=== PATIENT | female | born 2000 | race Asian ===

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

== ENCOUNTER → 2020-05-14 | Outpatient (CLI) | payer BC | LOC: COL.RAD 09:32 | DX: H02.402 Unspecified ptosis of left eyelid (principal); G62.9 Polyneuropathy, unspecified | CPT/HCPCS: A9585 ==

== ENCOUNTER 2022-03-19 09:57 | Outpatient (CLI) | payer BC ==
[~2022-03-19] VITALS: Ht 160 cm; Wt 57.5 kg
[2022-03-19] VITALS (11 sets, daily range): BP systolic 101–120; BP diastolic 40–83; PULSE 48–75; TEMP 98
[~2022-03-19 09:57] MED LIST: DESYREL 50MG50 MG PO; LEXAPRO 10MG10 MG PO; MAGNESIUM500 MG PO; PRENATAL TABLET PO; SYNTHROID 0.0.025 MG PO; VITAMIN D 50,1.25 MG PO; VITAMIN D31000 I1 PO
[2022-03-19 10:46] LABS: ALBUMIN 3.9 gm/dL (3.5-5.0); BILIRUBIN,TOTAL 1.3 mg/dL (0.2-1.2); CALCIUM 8.9 mg/dL (8.4-10.2); CREATININE, serum 0.73 mg/dL (0.57-1.11); POTASSIUM 4.3 mmol/L (3.5-4.5); TOTAL PROTEIN 7.9 gm/dL (6.2-8.1)
[2022-03-19 10:49] LABS: BASO % 0.4 % (0.0-2.0); GRAN # 2.8 K/mm3 (1.4-6.5); GRAN % 54.6 % (42.2-75.2); HEMATOCRIT 37.4 % (37.0-47.0); HEMOGLOBIN 13.3 g/dl (12.5-16.0); LYMPH # 1.9 K/mm3 (1.2-3.4); LYMPH % 38.3 % (20.0-51.0); MEAN CELL VOLUME 90 fl (80.0-100.0); MEAN CORPUSCULAR HEMOGLOBIN 32 pg (27-31); MEAN CORPUSCULAR HGB CONC 36 g/dl (33.0-37.0); MEAN PLATELET VOLUME 9.4 fl (7.4-10.4); MONO # 0.3 K/mm3 (0.1-0.6); MONO % 6.5 % (1.7-9.3); PLATELET COUNT 311 K/mm3 (130-400); RED BLOOD COUNT 4.14 M/mm3 (4.10-5.30)
== END 2022-03-19 16:22 | disposition home or self-care (01) ==
LOC: EUO 09:57
PROVIDERS: Psychiatry & Neurology Neurology
DX: E06.3 Autoimmune thyroiditis (principal); G62.9 Polyneuropathy, unspecified; G61.81 Chronic inflammatory demyelinating polyneuritis
CPT/HCPCS: J1569; J7050

== ENCOUNTER 2022-05-21 08:56 | Outpatient (CLI) | payer BC ==
[~2022-05-21] VITALS: Ht 160 cm; Wt 56.7 kg
[2022-05-21] VITALS (9 sets, daily range): BP systolic 95–110; BP diastolic 60–77; PULSE 62–74; TEMP 98.3
[~2022-05-21 08:56] MED LIST changes: -MAGNESIUM500 MG PO; +NATURAL MAGNES200 MG PO
[2022-05-21 09:29] LABS: BASO % 0.2 % (0.0-2.0); GRAN # 8.2 K/mm3 (1.4-6.5); GRAN % 78.2 % (42.2-75.2); HEMATOCRIT 39.9 % (37.0-47.0); LYMPH # 1.6 K/mm3 (1.2-3.4); LYMPH % 15.7 % (20.0-51.0); MEAN CELL VOLUME 91 fl (80.0-100.0); MEAN CORPUSCULAR HEMOGLOBIN 32 pg (27-31); MEAN CORPUSCULAR HGB CONC 35 g/dl (33.0-37.0); MEAN PLATELET VOLUME 9.5 fl (7.4-10.4); MONO # 0.6 K/mm3 (0.1-0.6); MONO % 5.6 % (1.7-9.3); PLATELET COUNT 288 K/mm3 (130-400); RED BLOOD COUNT 4.39 M/mm3 (4.10-5.30); REDCELL DISTRIBUTION WIDTH-CV 11.6 % (11.5-14.5)
[2022-05-21 09:44] LABS: ALBUMIN 3.9 gm/dL (3.5-5.0); BILIRUBIN,TOTAL 0.7 mg/dL (0.2-1.2); CALCIUM 8.7 mg/dL (8.4-10.2); CREATININE, serum 0.74 mg/dL (0.57-1.11); POTASSIUM 3.9 mmol/L (3.5-4.5); TOTAL PROTEIN 7.8 gm/dL (6.2-8.1)
== END 2022-05-21 13:45 | disposition home or self-care (01) ==
LOC: EUO 08:56
PROVIDERS: Psychiatry & Neurology Neurology
DX: E06.3 Autoimmune thyroiditis (principal); G62.9 Polyneuropathy, unspecified; G61.81 Chronic inflammatory demyelinating polyneuritis
CPT/HCPCS: J1569; J7050

== ENCOUNTER 2022-06-11 08:58 | Outpatient (CLI) | payer BC ==
[2022-06-11] VITALS (9 sets, daily range): BP systolic 97–110; BP diastolic 43–57; PULSE 53–83; TEMP 97.9–98
[~2022-06-11] VITALS: Ht 160 cm; Wt 58.4 kg
[2022-06-11 09:30] LABS: BASO % 0.4 % (0.0-2.0); GRAN # 3.1 K/mm3 (1.4-6.5); GRAN % 59.2 % (42.2-75.2); HEMATOCRIT 37.8 % (37.0-47.0); HEMOGLOBIN 13.2 g/dl (12.5-16.0); LYMPH # 1.7 K/mm3 (1.2-3.4); LYMPH % 32.6 % (20.0-51.0); MEAN CELL VOLUME 92 fl (80.0-100.0); MEAN CORPUSCULAR HEMOGLOBIN 32 pg (27-31); MEAN CORPUSCULAR HGB CONC 35 g/dl (33.0-37.0); MEAN PLATELET VOLUME 9.3 fl (7.4-10.4); MONO # 0.4 K/mm3 (0.1-0.6); MONO % 7.6 % (1.7-9.3); PLATELET COUNT 306 K/mm3 (130-400); REDCELL DISTRIBUTION WIDTH-CV 12.4 % (11.5-14.5)
[2022-06-11 09:53] LABS: ALBUMIN 3.6 gm/dL (3.5-5.0); BILIRUBIN,TOTAL 0.8 mg/dL (0.2-1.2); CALCIUM 8.4 mg/dL (8.4-10.2); CREATININE, serum 0.75 mg/dL (0.57-1.11); POTASSIUM 4.2 mmol/L (3.5-4.5); TOTAL PROTEIN 7.3 gm/dL (6.2-8.1)
== END 2022-06-11 14:04 | disposition home or self-care (01) ==
LOC: EUO 08:58
PROVIDERS: Psychiatry & Neurology Neurology
DX: E06.3 Autoimmune thyroiditis (principal); G62.9 Polyneuropathy, unspecified; G61.81 Chronic inflammatory demyelinating polyneuritis
CPT/HCPCS: J1569; J7050

== ENCOUNTER 2022-07-02 08:57 | Outpatient (CLI) | payer BC ==
[~2022-07-02] VITALS: Ht 160 cm; Wt 57.7 kg
[2022-07-02 09:23] LABS: BASO % 0.5 % (0.0-2.0); GRAN % 63.1 % (42.2-75.2); HEMATOCRIT 38.5 % (37.0-47.0); HEMOGLOBIN 13.6 g/dl (12.5-16.0); LYMPH # 1.9 K/mm3 (1.2-3.4); LYMPH % 30.3 % (20.0-51.0); MEAN CELL VOLUME 92 fl (80.0-100.0); MEAN CORPUSCULAR HEMOGLOBIN 33 pg (27-31); MEAN CORPUSCULAR HGB CONC 35 g/dl (33.0-37.0); MEAN PLATELET VOLUME 9.4 fl (7.4-10.4); MONO # 0.4 K/mm3 (0.1-0.6); MONO % 5.8 % (1.7-9.3); PLATELET COUNT 301 K/mm3 (130-400); RED BLOOD COUNT 4.18 M/mm3 (4.10-5.30)
[2022-07-02 09:27] VITALS: BP 99/52; PULSE 58; TEMP 98
[2022-07-02 09:43] LABS: ALBUMIN 3.9 gm/dL (3.5-5.0); BILIRUBIN,TOTAL 0.7 mg/dL (0.2-1.2); CALCIUM 8.7 mg/dL (8.4-10.2); CREATININE, serum 0.76 mg/dL (0.57-1.11); TOTAL PROTEIN 7.9 gm/dL (6.2-8.1)
[2022-07-02 10:25] VITALS: BP 93/48; PULSE 63
[2022-07-02 11:00] VITALS: BP 96/45; PULSE 67
[2022-07-02 12:00] VITALS: BP 101/48; PULSE 62
[2022-07-02 13:00] VITALS: BP 102/54; PULSE 56
--- NOTE | 2022-07-02 15:24 | NUR ---
Pt discharged at approx 1445. Pt tolerated IVIG infusion well and her VS remained within her normal limits throughout infusion. Pt's baseline BP today is hypotensive and this was discussed with pt during her infusion. Pt verbalized that she did not feel symptomatic of hypotension and denied faintness, lightheadedness, and nausea. Pt ambulated independently to and from main lobby and tolerated po food and fluid during infusion. Pt was given card with her next appointment and was free from concnerns and complaints at time of discharge.
== END 2022-07-02 14:45 | disposition home or self-care (01) ==
LOC: EUO 08:57
PROVIDERS: Psychiatry & Neurology Neurology
DX: E06.3 Autoimmune thyroiditis (principal); G62.9 Polyneuropathy, unspecified; G61.81 Chronic inflammatory demyelinating polyneuritis
CPT/HCPCS: J1569; J7050

== ENCOUNTER 2022-07-23 09:06 | Outpatient (CLI) | payer BC ==
[2022-07-23] VITALS (9 sets, daily range): BP systolic 92–107; BP diastolic 58–67; PULSE 62–81; TEMP 98.5–99
[~2022-07-23] VITALS: Ht 160 cm; Wt 58.6 kg
[2022-07-23] MEDS ORDERED: GAMMAGARD IV (09:22)
[2022-07-23 09:29] LABS: BASO % 0.5 % (0.0-2.0); GRAN # 3.3 K/mm3 (1.4-6.5); GRAN % 56.8 % (42.2-75.2); HEMATOCRIT 37.4 % (37.0-47.0); HEMOGLOBIN 12.8 g/dl (12.5-16.0); LYMPH # 2.1 K/mm3 (1.2-3.4); LYMPH % 36.1 % (20.0-51.0); MEAN CELL VOLUME 93 fl (80.0-100.0); MEAN CORPUSCULAR HEMOGLOBIN 32 pg (27-31); MEAN CORPUSCULAR HGB CONC 34 g/dl (33.0-37.0); MEAN PLATELET VOLUME 9.4 fl (7.4-10.4); MONO # 0.4 K/mm3 (0.1-0.6); MONO % 6.3 % (1.7-9.3); PLATELET COUNT 322 K/mm3 (130-400); RED BLOOD COUNT 4.03 M/mm3 (4.10-5.30); REDCELL DISTRIBUTION WIDTH-CV 12.8 % (11.5-14.5)
[2022-07-23 09:44] LABS: ALBUMIN 3.8 gm/dL (3.5-5.0); BILIRUBIN,TOTAL 0.8 mg/dL (0.2-1.2); CALCIUM 8.7 mg/dL (8.4-10.2); CREATININE, serum 0.74 mg/dL (0.57-1.11); POTASSIUM 3.8 mmol/L (3.5-4.5); TOTAL PROTEIN 7.5 gm/dL (6.2-8.1)
== END 2022-07-23 13:45 | disposition home or self-care (01) ==
LOC: EUO 09:06
PROVIDERS: Psychiatry & Neurology Neurology
DX: E06.3 Autoimmune thyroiditis (principal); G62.9 Polyneuropathy, unspecified; G61.81 Chronic inflammatory demyelinating polyneuritis
CPT/HCPCS: J1569; J7050

== ENCOUNTER 2022-11-05 09:06 | Outpatient (CLI) | payer BC ==
[~2022-11-05] VITALS: Ht 160 cm; Wt 58.9 kg
[2022-11-05] VITALS (7 sets, daily range): BP systolic 100–110; BP diastolic 50–57; PULSE 51–59; TEMP 97.8
[~2022-11-05 09:06] MED LIST changes: +GAMMAGARD IV
[2022-11-05 09:35] LABS: BASO % 0.3 % (0.0-2.0); GRAN # 2.2 K/mm3 (1.4-6.5); GRAN % 55.4 % (42.2-75.2); HEMATOCRIT 39.9 % (37.0-47.0); HEMOGLOBIN 13.7 g/dl (12.5-16.0); LYMPH # 1.4 K/mm3 (1.2-3.4); MEAN CELL VOLUME 92 fl (80.0-100.0); MEAN CORPUSCULAR HEMOGLOBIN 32 pg (27-31); MEAN CORPUSCULAR HGB CONC 34 g/dl (33.0-37.0); MEAN PLATELET VOLUME 9.5 fl (7.4-10.4); MONO # 0.3 K/mm3 (0.1-0.6); PLATELET COUNT 290 K/mm3 (130-400); RED BLOOD COUNT 4.35 M/mm3 (4.10-5.30); REDCELL DISTRIBUTION WIDTH-CV 12.5 % (11.5-14.5)
[2022-11-05 09:51] LABS: ALBUMIN 4.2 gm/dL (3.5-5.0); BILIRUBIN,TOTAL 1.9 mg/dL (0.2-1.2); CALCIUM 8.9 mg/dL (8.4-10.2); CREATININE, serum 0.75 mg/dL (0.57-1.11); POTASSIUM 3.9 mmol/L (3.5-4.5); TOTAL PROTEIN 8.5 gm/dL (6.2-8.1)
== END 2022-11-05 13:54 | disposition home or self-care (01) ==
LOC: EUO 09:06
PROVIDERS: Psychiatry & Neurology Neurology
DX: E06.3 Autoimmune thyroiditis (principal); G62.9 Polyneuropathy, unspecified
CPT/HCPCS: J1569; J7050

== ENCOUNTER → 2022-11-23 | Outpatient (CLI) | payer BC | LOC: COL.RAD 10:30 | DX: R74.01 Elevation of levels of liver transaminase levels (principal) ==

== ENCOUNTER 2022-12-03 07:33 | Outpatient (CLI) | payer BC ==
[2022-12-03] VITALS (8 sets, daily range): BP systolic 94–111; BP diastolic 54–69; PULSE 55–73; TEMP 98–98.4
[~2022-12-03] VITALS: Ht 160 cm; Wt 59.6 kg
[2022-12-03 08:10] LABS: BASO % 0.5 % (0.0-2.0); GRAN % 61.6 % (42.2-75.2); HEMATOCRIT 38.2 % (37.0-47.0); HEMOGLOBIN 13.6 g/dl (12.5-16.0); LYMPH # 2.1 K/mm3 (1.2-3.4); MEAN CELL VOLUME 93 fl (80.0-100.0); MEAN CORPUSCULAR HEMOGLOBIN 33 pg (27-31); MEAN CORPUSCULAR HGB CONC 36 g/dl (33.0-37.0); MEAN PLATELET VOLUME 9.7 fl (7.4-10.4); MONO # 0.4 K/mm3 (0.1-0.6); MONO % 5.7 % (1.7-9.3); PLATELET COUNT 275 K/mm3 (130-400); RED BLOOD COUNT 4.11 M/mm3 (4.10-5.30); REDCELL DISTRIBUTION WIDTH-CV 13.1 % (11.5-14.5)
[2022-12-03 08:18] LABS: ALBUMIN 3.8 gm/dL (3.5-5.0); BILIRUBIN,TOTAL 1.2 mg/dL (0.2-1.2); CALCIUM 8.8 mg/dL (8.4-10.2); CREATININE, serum 0.73 mg/dL (0.57-1.11); POTASSIUM 3.9 mmol/L (3.5-4.5); TOTAL PROTEIN 8.1 gm/dL (6.2-8.1)
== END 2022-12-03 12:00 | disposition home or self-care (01) ==
LOC: EUO 07:33
PROVIDERS: Psychiatry & Neurology Neurology
DX: G61.81 Chronic inflammatory demyelinating polyneuritis (principal); E06.3 Autoimmune thyroiditis; G62.9 Polyneuropathy, unspecified
CPT/HCPCS: J1569; J7050

== ENCOUNTER 2022-12-17 08:47 | Outpatient (CLI) | payer BC ==
[2022-12-17] VITALS (8 sets, daily range): BP systolic 105–146; BP diastolic 65–79; PULSE 55–74; TEMP 97.8–98.5
[~2022-12-17] VITALS: Ht 160 cm; Wt 59.1 kg
[2022-12-17 09:14] LABS: BASO % 0.7 % (0.0-2.0); GRAN # 2.4 K/mm3 (1.4-6.5); GRAN % 53.2 % (42.2-75.2); HEMATOCRIT 39.3 % (37.0-47.0); LYMPH # 1.7 K/mm3 (1.2-3.4); LYMPH % 38.3 % (20.0-51.0); MEAN CELL VOLUME 92 fl (80.0-100.0); MEAN CORPUSCULAR HEMOGLOBIN 33 pg (27-31); MEAN CORPUSCULAR HGB CONC 36 g/dl (33.0-37.0); MEAN PLATELET VOLUME 9.4 fl (7.4-10.4); MONO # 0.3 K/mm3 (0.1-0.6); MONO % 7.6 % (1.7-9.3); PLATELET COUNT 277 K/mm3 (130-400); RED BLOOD COUNT 4.27 M/mm3 (4.10-5.30); REDCELL DISTRIBUTION WIDTH-CV 12.3 % (11.5-14.5)
[2022-12-17 09:34] LABS: ALBUMIN 3.9 gm/dL (3.5-5.0); BILIRUBIN,TOTAL 0.7 mg/dL (0.2-1.2); CALCIUM 8.8 mg/dL (8.4-10.2); CREATININE, serum 0.74 mg/dL (0.57-1.11); POTASSIUM 4.2 mmol/L (3.5-4.5); TOTAL PROTEIN 8.5 gm/dL (6.2-8.1)
--- NOTE | 2022-12-17 13:30 | NUR ---
Pt tolerated infusion without issue. IV DC'd, she exits dept with steady gait. Free of complaints at time of discharge.
== END 2022-12-17 13:30 | disposition home or self-care (01) ==
LOC: EUO 08:47
PROVIDERS: Psychiatry & Neurology Neurology
DX: G61.81 Chronic inflammatory demyelinating polyneuritis (principal)
CPT/HCPCS: J1569; J7050

== ENCOUNTER 2023-03-04 09:02 | Outpatient (CLI) | payer BC ==
[~2023-03-04] VITALS: Ht 160 cm; Wt 61.3 kg
[2023-03-04 09:32] LABS: BASO % 0.3 % (0.0-2.0); GRAN # 4.6 K/mm3 (1.4-6.5); GRAN % 66.9 % (42.2-75.2); HEMOGLOBIN 13.6 g/dl (12.5-16.0); LYMPH # 1.8 K/mm3 (1.2-3.4); LYMPH % 25.8 % (20.0-51.0); MEAN CELL VOLUME 92 fl (80.0-100.0); MEAN CORPUSCULAR HEMOGLOBIN 33 pg (27-31); MEAN CORPUSCULAR HGB CONC 36 g/dl (33.0-37.0); MEAN PLATELET VOLUME 9.3 fl (7.4-10.4); MONO # 0.5 K/mm3 (0.1-0.6); MONO % 6.9 % (1.7-9.3); PLATELET COUNT 291 K/mm3 (130-400); RED BLOOD COUNT 4.13 M/mm3 (4.10-5.30); REDCELL DISTRIBUTION WIDTH-CV 12.2 % (11.5-14.5)
[2023-03-04 09:41] VITALS: BP 107/50; PULSE 61; TEMP 98
[2023-03-04 09:54] LABS: ALBUMIN 3.7 gm/dL (3.5-5.0); BILIRUBIN,TOTAL 0.5 mg/dL (0.2-1.2); CALCIUM 8.8 mg/dL (8.4-10.2); CREATININE, serum 0.74 mg/dL (0.57-1.11); TOTAL PROTEIN 8.2 gm/dL (6.2-8.1)
[2023-03-04 10:45] VITALS: BP 110/60; PULSE 63
[2023-03-04 11:15] VITALS: BP 101/60; PULSE 57
[2023-03-04 11:45] VITALS: BP 106/49; PULSE 63
[2023-03-04 12:15] VITALS: BP 107/59; PULSE 72
== END 2023-03-04 13:39 | disposition home or self-care (01) ==
LOC: EUO 09:02
PROVIDERS: Psychiatry & Neurology Neurology
DX: G61.81 Chronic inflammatory demyelinating polyneuritis (principal)
CPT/HCPCS: J1569; J7050

== ENCOUNTER 2023-03-18 10:07 | Outpatient (CLI) | payer BC ==
[2023-03-18] VITALS (8 sets, daily range): BP systolic 101–120; BP diastolic 41–67; PULSE 61–86; TEMP 98.4
[~2023-03-18] VITALS: Ht 160 cm; Wt 59.9 kg
[2023-03-18] MEDS ORDERED: NS 250 ML IV SCH (10:30)
[2023-03-18] MEDS ORDERED: Immune Globulin (Gammagard) 30 G/300 ML IV SOLN IV SCH (10:30)
[2023-03-18] MEDS ORDERED: Acetaminophen 325 MG TAB PO ONE (10:30)
[2023-03-18] MEDS ORDERED: diphenhydrAMINE 50 MG CAP PO ONE (10:30)
[2023-03-18 10:44] LABS: BASO % 0.6 % (0.0-2.0); GRAN # 3.1 K/mm3 (1.4-6.5); HEMATOCRIT 38.9 % (37.0-47.0); HEMOGLOBIN 14.1 g/dl (12.5-16.0); LYMPH # 1.4 K/mm3 (1.2-3.4); MEAN CELL VOLUME 91 fl (80.0-100.0); MEAN CORPUSCULAR HEMOGLOBIN 33 pg (27-31); MEAN CORPUSCULAR HGB CONC 36 g/dl (33.0-37.0); MEAN PLATELET VOLUME 9.4 fl (7.4-10.4); MONO # 0.4 K/mm3 (0.1-0.6); MONO % 7.2 % (1.7-9.3); PLATELET COUNT 313 K/mm3 (130-400); RED BLOOD COUNT 4.28 M/mm3 (4.10-5.30); REDCELL DISTRIBUTION WIDTH-CV 12.3 % (11.5-14.5)
[2023-03-18 11:01] LABS: ALBUMIN 3.9 gm/dL (3.5-5.0); BILIRUBIN,TOTAL 1.2 mg/dL (0.2-1.2); CALCIUM 9.2 mg/dL (8.4-10.2); CREATININE, serum 0.71 mg/dL (0.57-1.11); POTASSIUM 4.2 mmol/L (3.5-4.5); TOTAL PROTEIN 8.8 gm/dL (6.2-8.1)
--- NOTE | 2023-03-18 14:45 | NUR ---
Pt tolerated IGG without issue. IV DC'd, site wrapped with coban. She exits dept with steady gait.
== END 2023-03-18 14:45 | disposition home or self-care (01) ==
LOC: EUO 10:07
PROVIDERS: Psychiatry & Neurology Neurology
DX: E06.3 Autoimmune thyroiditis (principal); G62.9 Polyneuropathy, unspecified; E04.9 Nontoxic goiter, unspecified; G61.81 Chronic inflammatory demyelinating polyneuritis
CPT/HCPCS: J1569; J7050

== ENCOUNTER 2023-04-01 09:01 | Outpatient (CLI) | payer BC ==
[2023-04-01] VITALS (7 sets, daily range): BP systolic 116–137; BP diastolic 70–83; PULSE 55–83; TEMP 98.2
[~2023-04-01] VITALS: Ht 160 cm; Wt 51.0 kg
[2023-04-01] MEDS ORDERED: diphenhydrAMINE 50 MG CAP PO ONE (09:15)
[2023-04-01] MEDS ORDERED: NS 250 ML IV SCH (09:15)
[2023-04-01] MEDS ORDERED: Immune Globulin (Gammagard) 30 G/300 ML IV SOLN IV SCH (09:15)
[2023-04-01 09:22] LABS: BASO % 0.4 % (0.0-2.0); EOS % 0.2 % (0.0-4.0); GRAN # 2.5 K/mm3 (1.4-6.5); GRAN % 53.3 % (42.2-75.2); HEMATOCRIT 39.7 % (37.0-47.0); HEMOGLOBIN 14.1 g/dl (12.5-16.0); LYMPH # 1.8 K/mm3 (1.2-3.4); MEAN CELL VOLUME 92 fl (80.0-100.0); MEAN CORPUSCULAR HEMOGLOBIN 33 pg (27-31); MEAN CORPUSCULAR HGB CONC 36 g/dl (33.0-37.0); MEAN PLATELET VOLUME 9.5 fl (7.4-10.4); MONO # 0.4 K/mm3 (0.1-0.6); MONO % 7.9 % (1.7-9.3); PLATELET COUNT 304 K/mm3 (130-400); RED BLOOD COUNT 4.34 M/mm3 (4.10-5.30); REDCELL DISTRIBUTION WIDTH-CV 12.4 % (11.5-14.5)
[2023-04-01] MEDS ORDERED: Acetaminophen 325 MG TAB PO ONE (09:30)
[2023-04-01 09:42] LABS: ALBUMIN 3.8 gm/dL (3.5-5.0); BILIRUBIN,TOTAL 1.2 mg/dL (0.2-1.2); CALCIUM 9.1 mg/dL (8.4-10.2); CREATININE, serum 0.82 mg/dL (0.57-1.11); POTASSIUM 4.2 mmol/L (3.5-4.5); TOTAL PROTEIN 8.5 gm/dL (6.2-8.1)
== END 2023-04-01 13:50 | disposition home or self-care (01) ==
LOC: EUO 09:01
PROVIDERS: Psychiatry & Neurology Neurology
DX: G61.81 Chronic inflammatory demyelinating polyneuritis (principal)
CPT/HCPCS: J1569; J7050

== ENCOUNTER 2023-04-15 07:31 | Outpatient (CLI) | payer BC ==
[~2023-04-15] VITALS: Ht 160 cm; Wt 60.9 kg
[2023-04-15] VITALS (8 sets, daily range): BP systolic 91–132; BP diastolic 45–67; PULSE 53–75; TEMP 97.8–98.3
[2023-04-15] MEDS ORDERED: Acetaminophen 325 MG TAB PO ONE (08:00)
[2023-04-15] MEDS ORDERED: diphenhydrAMINE 50 MG CAP PO ONE (08:00)
[2023-04-15] MEDS ORDERED: Immune Globulin (Gammagard) 30 G/300 ML IV SOLN IV SCH (08:00)
[2023-04-15] MEDS ORDERED: NS 250 ML IV SCH (08:00)
[2023-04-15 08:06] LABS: BASO % 0.4 % (0.0-2.0); EOS % 0.1 % (0.0-4.0); GRAN # 4.2 K/mm3 (1.4-6.5); GRAN % 62.3 % (42.2-75.2); HEMATOCRIT 38.2 % (37.0-47.0); HEMOGLOBIN 13.3 g/dl (12.5-16.0); LYMPH % 29.7 % (20.0-51.0); MEAN CELL VOLUME 93 fl (80.0-100.0); MEAN CORPUSCULAR HEMOGLOBIN 32 pg (27-31); MEAN CORPUSCULAR HGB CONC 35 g/dl (33.0-37.0); MEAN PLATELET VOLUME 9.4 fl (7.4-10.4); MONO # 0.5 K/mm3 (0.1-0.6); MONO % 7.2 % (1.7-9.3); PLATELET COUNT 267 K/mm3 (130-400); RED BLOOD COUNT 4.12 M/mm3 (4.10-5.30); REDCELL DISTRIBUTION WIDTH-CV 12.7 % (11.5-14.5)
[2023-04-15 08:23] LABS: ALBUMIN 3.5 gm/dL (3.5-5.0); BILIRUBIN,TOTAL 0.6 mg/dL (0.2-1.2); CALCIUM 8.9 mg/dL (8.4-10.2); CREATININE, serum 0.73 mg/dL (0.57-1.11); POTASSIUM 3.9 mmol/L (3.5-4.5); TOTAL PROTEIN 7.8 gm/dL (6.2-8.1)
== END 2023-04-15 12:05 ==
LOC: EUO 07:31
PROVIDERS: Psychiatry & Neurology Neurology
DX: G61.81 Chronic inflammatory demyelinating polyneuritis (principal); E06.9 Thyroiditis, unspecified; E04.9 Nontoxic goiter, unspecified
CPT/HCPCS: J1569; J7050

== ENCOUNTER 2023-05-13 08:59 | Outpatient (CLI) | payer BC ==
[~2023-05-13] VITALS: Ht 160 cm; Wt 61.0 kg
[2023-05-13] VITALS (9 sets, daily range): BP systolic 105–141; BP diastolic 45–60; PULSE 65–103; TEMP 97.8
[2023-05-13] MEDS ORDERED: Acetaminophen 325 MG TAB PO ONE (09:15)
[2023-05-13] MEDS ORDERED: Immune Globulin (Gammagard) 30 G/300 ML IV SOLN IV SCH (09:15)
[2023-05-13] MEDS ORDERED: diphenhydrAMINE 50 MG CAP PO ONE (09:15)
[2023-05-13] MEDS ORDERED: NS 250 ML IV SCH (09:15)
[2023-05-13 09:40] LABS: BASO % 0.5 % (0.0-2.0); GRAN # 3.4 K/mm3 (1.4-6.5); GRAN % 62.2 % (42.2-75.2); HEMATOCRIT 40.1 % (37.0-47.0); HEMOGLOBIN 14.2 g/dl (12.5-16.0); LYMPH # 1.7 K/mm3 (1.2-3.4); LYMPH % 30.2 % (20.0-51.0); MEAN CELL VOLUME 93 fl (80.0-100.0); MEAN CORPUSCULAR HEMOGLOBIN 33 pg (27-31); MEAN CORPUSCULAR HGB CONC 35 g/dl (33.0-37.0); MEAN PLATELET VOLUME 9.5 fl (7.4-10.4); MONO # 0.4 K/mm3 (0.1-0.6); MONO % 6.7 % (1.7-9.3); PLATELET COUNT 317 K/mm3 (130-400); RED BLOOD COUNT 4.33 M/mm3 (4.10-5.30); REDCELL DISTRIBUTION WIDTH-CV 12.4 % (11.5-14.5)
[2023-05-13 09:51] LABS: ALBUMIN 3.9 gm/dL (3.5-5.0); CALCIUM 9.2 mg/dL (8.4-10.2); CREATININE, serum 0.8 mg/dL (0.57-1.11); POTASSIUM 3.9 mmol/L (3.5-4.5); TOTAL PROTEIN 8.5 gm/dL (6.2-8.1)
[2023-05-13 10:00] LABS: BILIRUBIN,TOTAL 0.9 mg/dL (0.2-1.2)
--- NOTE | 2023-05-13 13:40 | NUR ---
PT TOLERATED INFUSION WELL. VS REMAINED WITHIN NORMAL LIMITS. PT FREE FROM ACUTE CONCERNS AND COMPLAINTS UPON DISCHARGE. PT AMBULATED INDEPENDENTLY TO [facility] UPON DISCHARGE. IV DISCONTINUED.
== END 2023-05-13 13:41 | disposition home or self-care (01) ==
LOC: EUO 08:59
PROVIDERS: Psychiatry & Neurology Neurology
DX: E06.3 Autoimmune thyroiditis (principal); G62.9 Polyneuropathy, unspecified; G61.81 Chronic inflammatory demyelinating polyneuritis; E04.9 Nontoxic goiter, unspecified
CPT/HCPCS: J1569; J7050

== ENCOUNTER 2023-06-24 07:29 | Outpatient (CLI) | payer BC ==
[~2023-06-24] VITALS: Ht 160 cm; Wt 63.3 kg
[2023-06-24] VITALS (8 sets, daily range): BP systolic 102–117; BP diastolic 53–70; PULSE 50–71; TEMP 97.6–98.7
[2023-06-24] MEDS ORDERED: NS 250 ML IV SCH (07:45)
[2023-06-24] MEDS ORDERED: Immune Globulin (Gammagard) 30 G/300 ML IV SOLN IV SCH (07:45)
[2023-06-24] MEDS ORDERED: Acetaminophen 325 MG TAB PO ONE (08:00)
[2023-06-24] MEDS ORDERED: diphenhydrAMINE 50 MG CAP PO ONE (08:00)
[2023-06-24 08:09] LABS: BASO % 0.6 % (0.0-2.0); EOS % 0.8 % (0.0-4.0); GRAN # 2.7 K/mm3 (1.4-6.5); GRAN % 52.5 % (42.2-75.2); HEMATOCRIT 40.1 % (37.0-47.0); HEMOGLOBIN 14.2 g/dl (12.5-16.0); LYMPH % 38.8 % (20.0-51.0); MEAN CELL VOLUME 92 fl (80.0-100.0); MEAN CORPUSCULAR HEMOGLOBIN 33 pg (27-31); MEAN CORPUSCULAR HGB CONC 35 g/dl (33.0-37.0); MEAN PLATELET VOLUME 9.7 fl (7.4-10.4); MONO # 0.4 K/mm3 (0.1-0.6); MONO % 7.1 % (1.7-9.3); PLATELET COUNT 310 K/mm3 (130-400); RED BLOOD COUNT 4.34 M/mm3 (4.10-5.30); REDCELL DISTRIBUTION WIDTH-CV 12.4 % (11.5-14.5)
[2023-06-24 08:25] LABS: ALBUMIN 3.6 g/dL (3.5-5.0); BILIRUBIN,TOTAL 0.5 mg/dL (0.2-1.2); CALCIUM 8.6 mg/dL (8.4-10.2); CREATININE, serum 0.73 mg/dL (0.57-1.11); POTASSIUM 3.9 mEq/L (3.5-4.5); TOTAL PROTEIN 7.8 g/dl (6.2-8.1)
--- NOTE | 2023-06-24 11:52 | NUR ---
Pt tolerated infusion without issue. She slept through most of infusion, but woke easily each time nurse entered room. Meal tray was ordered for pt. IV flushed and DC'd, site wrapped with coban. She exits dept with steady gait. Free of complaints at discharge.
== END 2023-06-24 11:53 | disposition home or self-care (01) ==
LOC: EUO 07:29
PROVIDERS: Psychiatry & Neurology Neurology
DX: G61.81 Chronic inflammatory demyelinating polyneuritis (principal); E06.3 Autoimmune thyroiditis; E04.9 Nontoxic goiter, unspecified; G62.9 Polyneuropathy, unspecified
CPT/HCPCS: J1569; J7050

== ENCOUNTER 2023-09-02 08:10 | Outpatient (CLI) | payer BC ==
[~2023-09-02] VITALS: Ht 160 cm; Wt 65.0 kg
[2023-09-02] VITALS (11 sets, daily range): BP systolic 121–143; BP diastolic 65–92; PULSE 60–89; TEMP 97.5
[2023-09-02 08:58] LABS: BASO % 0.4 % (0.0-2.0); GRAN # 3.4 K/mm3 (1.4-6.5); GRAN % 60.6 % (42.2-75.2); HEMATOCRIT 42.5 % (37.0-47.0); HEMOGLOBIN 14.7 g/dl (12.5-16.0); LYMPH # 1.7 K/mm3 (1.2-3.4); LYMPH % 31.4 % (20.0-51.0); MEAN CELL VOLUME 92 fl (80.0-100.0); MEAN CORPUSCULAR HEMOGLOBIN 32 pg (27-31); MEAN CORPUSCULAR HGB CONC 35 g/dl (33.0-37.0); MEAN PLATELET VOLUME 9.3 fl (7.4-10.4); MONO # 0.4 K/mm3 (0.1-0.6); MONO % 7.6 % (1.7-9.3); PLATELET COUNT 356 K/mm3 (130-400); RED BLOOD COUNT 4.63 M/mm3 (4.10-5.30); REDCELL DISTRIBUTION WIDTH-CV 12.6 % (11.5-14.5)
[2023-09-02] MEDS ORDERED: Immune Globulin (Gammagard) 30 G/300 ML IV SOLN IV SCH (09:00)
[2023-09-02] MEDS ORDERED: NS 250 ML IV SCH (09:00)
[2023-09-02 09:10] LABS: BILIRUBIN,TOTAL 0.9 mg/dL (0.2-1.2); CREATININE, serum 0.78 mg/dL (0.57-1.11); TOTAL PROTEIN 7.7 g/dl (6.2-8.1)
--- NOTE | 2023-09-02 12:23 | NUR ---
Pt tolerated IGG infusion without issue. She ambulated to restroom once during infusion. She remains free of complaints. IV DC'd, site wrapped with coban. She exits dept with steady gait.
== END 2023-09-02 12:24 | disposition home or self-care (01) ==
LOC: EUO 08:10
PROVIDERS: Psychiatry & Neurology Neurology
DX: G61.81 Chronic inflammatory demyelinating polyneuritis (principal); E06.3 Autoimmune thyroiditis; G62.9 Polyneuropathy, unspecified
CPT/HCPCS: J1569; J7050

== ENCOUNTER 2023-09-30 09:00 | Outpatient (CLI) | payer BC ==
[2023-09-30] VITALS (7 sets, daily range): BP systolic 107–121; BP diastolic 54–77; PULSE 57–96; TEMP 97.6
[~2023-09-30] VITALS: Ht 160 cm; Wt 64.0 kg
[2023-09-30] MEDS ORDERED: Acetaminophen 325 MG TAB PO ONE (09:15)
[2023-09-30] MEDS ORDERED: diphenhydrAMINE 50 MG CAP PO ONE (09:15)
[2023-09-30] MEDS ORDERED: NS 250 ML IV SCH (09:15)
[2023-09-30] MEDS ORDERED: Immune Globulin (Gammagard) 30 G/300 ML IV SOLN IV SCH (09:15)
[2023-09-30 09:20] LABS: BASO % 0.4 % (0.0-2.0); GRAN # 2.7 K/mm3 (1.4-6.5); GRAN % 57.1 % (42.2-75.2); HEMATOCRIT 43.3 % (37.0-47.0); HEMOGLOBIN 15.4 g/dl (12.5-16.0); LYMPH # 1.7 K/mm3 (1.2-3.4); LYMPH % 35.6 % (20.0-51.0); MEAN CELL VOLUME 91 fl (80.0-100.0); MEAN CORPUSCULAR HEMOGLOBIN 32 pg (27-31); MEAN CORPUSCULAR HGB CONC 36 g/dl (33.0-37.0); MEAN PLATELET VOLUME 9.7 fl (7.4-10.4); MONO # 0.3 K/mm3 (0.1-0.6); MONO % 6.7 % (1.7-9.3); PLATELET COUNT 295 K/mm3 (130-400); RED BLOOD COUNT 4.76 M/mm3 (4.10-5.30); REDCELL DISTRIBUTION WIDTH-CV 12.3 % (11.5-14.5)
[2023-09-30 09:54] LABS: BILIRUBIN,TOTAL 1.6 mg/dL (0.2-1.2); CREATININE, serum 0.84 mg/dL (0.57-1.11); TOTAL PROTEIN 8.2 g/dl (6.2-8.1)
--- NOTE | 2023-09-30 12:45 | NUR ---
Pt tolerated IGG without issue. She was up to restroom x1 during infusion. IV DC'd, site wrapped with coban. She exits dept with steady gait. Free of complaints at discharge.
== END 2023-09-30 12:45 | disposition home or self-care (01) ==
LOC: EUO 09:00
PROVIDERS: Psychiatry & Neurology Neurology
DX: G61.81 Chronic inflammatory demyelinating polyneuritis (principal); E06.3 Autoimmune thyroiditis
CPT/HCPCS: J1569; J7050

== ENCOUNTER 2023-12-09 08:05 | Outpatient (CLI) | payer BC ==
[~2023-12-09] VITALS: Ht 160 cm; Wt 66.3 kg
[2023-12-09] VITALS (7 sets, daily range): BP systolic 106–123; BP diastolic 49–65; PULSE 52–66; TEMP 97.8
[2023-12-09 08:29] LABS: BASO % 0.3 % (0.0-2.0); GRAN # 3.9 K/mm3 (1.4-6.5); GRAN % 65.7 % (42.2-75.2); HEMATOCRIT 43.4 % (37.0-47.0); HEMOGLOBIN 15.6 g/dl (12.5-16.0); LYMPH # 1.6 K/mm3 (1.2-3.4); LYMPH % 27.5 % (20.0-51.0); MEAN CELL VOLUME 91 fl (80.0-100.0); MEAN CORPUSCULAR HEMOGLOBIN 33 pg (27-31); MEAN CORPUSCULAR HGB CONC 36 g/dl (33.0-37.0); MEAN PLATELET VOLUME 9.5 fl (7.4-10.4); MONO # 0.4 K/mm3 (0.1-0.6); MONO % 6.3 % (1.7-9.3); PLATELET COUNT 335 K/mm3 (130-400); RED BLOOD COUNT 4.77 M/mm3 (4.10-5.30); REDCELL DISTRIBUTION WIDTH-CV 11.9 % (11.5-14.5)
[2023-12-09] MEDS ORDERED: NS 250 ML IV SCH (08:30)
[2023-12-09] MEDS ORDERED: Immune Globulin (Gammagard) 30 G/300 ML IV SOLN IV SCH (08:30)
[2023-12-09] MEDS ORDERED: diphenhydrAMINE 50 MG CAP PO ONE (08:30)
[2023-12-09] MEDS ORDERED: Acetaminophen 325 MG TAB PO ONE (08:30)
[2023-12-09 08:48] LABS: ALBUMIN 3.8 g/dL (3.5-5.0); BILIRUBIN,TOTAL 1.3 mg/dL (0.2-1.2); CALCIUM 8.6 mg/dL (8.4-10.2); CREATININE, serum 0.79 mg/dL (0.57-1.11); POTASSIUM 3.9 mEq/L (3.5-4.5); TOTAL PROTEIN 7.3 g/dl (6.2-8.1)
--- NOTE | 2023-12-09 11:50 | NUR ---
Pt tolerated infusion without issue. IV DC'd, site wrapped with coban. Pt exits dept with steady gait. Free of complaints at discharge.
== END 2023-12-09 11:50 | disposition home or self-care (01) ==
LOC: EUO 08:05
PROVIDERS: Psychiatry & Neurology Neurology
DX: G61.81 Chronic inflammatory demyelinating polyneuritis (principal); E06.3 Autoimmune thyroiditis; G62.9 Polyneuropathy, unspecified; E04.9 Nontoxic goiter, unspecified
CPT/HCPCS: J1569; J7050

== ENCOUNTER 2023-12-23 08:07 | Outpatient (CLI) | payer BC ==
[~2023-12-23] VITALS: Ht 160 cm; Wt 65.0 kg
[2023-12-23] VITALS (9 sets, daily range): BP systolic 107–136; BP diastolic 61–88; PULSE 66–75; TEMP 98.5
[2023-12-23] MEDS ORDERED: Immune Globulin (Gammagard) 30 G/300 ML IV SOLN IV SCH (08:30)
[2023-12-23] MEDS ORDERED: NS 250 ML IV SCH (08:30)
[2023-12-23] MEDS ORDERED: diphenhydrAMINE 50 MG CAP PO ONE (08:32)
[2023-12-23] MEDS ORDERED: Acetaminophen 325 MG TAB PO ONE (08:33)
[2023-12-23 08:48] LABS: BASO % 0.3 % (0.0-2.0); EOS % 0.1 % (0.0-4.0); GRAN # 7.2 K/mm3 (1.4-6.5); GRAN % 74.3 % (42.2-75.2); HEMATOCRIT 44.2 % (37.0-47.0); HEMOGLOBIN 15.7 g/dl (12.5-16.0); LYMPH # 1.8 K/mm3 (1.2-3.4); LYMPH % 18.7 % (20.0-51.0); MEAN CELL VOLUME 91 fl (80.0-100.0); MEAN CORPUSCULAR HEMOGLOBIN 32 pg (27-31); MEAN CORPUSCULAR HGB CONC 36 g/dl (33.0-37.0); MEAN PLATELET VOLUME 9.8 fl (7.4-10.4); MONO # 0.6 K/mm3 (0.1-0.6); MONO % 6.2 % (1.7-9.3); PLATELET COUNT 322 K/mm3 (130-400); RED BLOOD COUNT 4.85 M/mm3 (4.10-5.30)
[2023-12-23] MEDS ORDERED: Immune Globulin (Gammagard) 5 G/50 ML IV SOLN IV SCH (09:00)
[2023-12-23 09:04] LABS: ALBUMIN 3.8 g/dL (3.5-5.0); BILIRUBIN,TOTAL 1.6 mg/dL (0.2-1.2); CALCIUM 8.5 mg/dL (8.4-10.2); CREATININE, serum 0.77 mg/dL (0.57-1.11); POTASSIUM 3.9 mEq/L (3.5-4.5); TOTAL PROTEIN 7.9 g/dl (6.2-8.1)
[2023-12-23] MEDS ORDERED: IMMUNE GLOBULIN 10 GM/100 ML IV SCH (10:00)
[2023-12-23] MEDS ORDERED: Immune Globulin (Gammagard) 30 G/300 ML IV SOLN IV ONE (11:30)
== END 2023-12-23 13:18 ==
LOC: EUO 08:07
PROVIDERS: Psychiatry & Neurology Neurology
DX: E06.3 Autoimmune thyroiditis (principal); G62.9 Polyneuropathy, unspecified; G61.81 Chronic inflammatory demyelinating polyneuritis; E04.9 Nontoxic goiter, unspecified
CPT/HCPCS: J1569; J7050